=== PATIENT | female | born 1950 | race American Indian/Alaskan Native ===

== ENCOUNTER 2016-09-24 20:49 | Emergency (ER) | payer MEDICARE ==
[2016-09-24 22:06] LABS: Basophils % (Auto) 0.9 % (0.0-1.8); Eosinophils % (Auto) 2.1 % (0.0-4.3); Hematocrit 41.7 % (30.3-42.9); Hemoglobin 13.8 gm/dl (10.1-14.3); Mean Corpuscular HGB Conc 33 % (30-34); Mean Corpuscular Hemoglobin 30 pg (28-32); Mean Corpuscular Volume 90 fl (79-97); Platelet Count 234 K/mm3 (140-440); Red Blood Count 4.65 M/mm3 (3.65-5.03); Red Cell Distribution Width 13.4 % (13.2-15.2); White Blood Count 6.7 K/mm3 (4.5-11.0)
[2016-09-24 22:16] LABS: INR 1.13 (0.87-1.13)
[2016-09-24 22:17] LABS: Partial Thromboplastin Time 27.9 Sec. (24.2-36.6)
[2016-09-24 23:01] LABS: Albumin 3.8 g/dL (3.9-5); Albumin/Globulin Ratio 1.1 %; Bilirubin,Total 0.6 mg/dL (0.1-1.2); Calcium 9.5 mg/dL (8.4-10.2); Chloride 90.6 mmol/L (98-107); Potassium 3.1 mmol/L (3.6-5.0); Total Protein 7.3 g/dL (6.3-8.2)
--- NOTE | 2016-09-24 23:10 | Cat Scan Report ---
FINAL REPORT EXAM: CT HEAD/BRAIN WO CON HISTORY: Headache TECHNIQUE: CT head without contrast PRIORS: None. FINDINGS: No acute intra-axial or extra-axial hemorrhage is identified. There is no evidence of midline shift or mass effect. The ventricles and sulci are within normal limits. Ramirez-white matter differentiation is intact. No acute parenchymal abnormalities seen. Bony calvarium is grossly intact. There is complete opacity within the visualized right maxillary sinus IMPRESSION: Opacification of the right maxillary sinus consistent with sinusitis which may be acute or chronic
[2016-09-25 05:58] LABS: Bilirubin,Urine NEG (Negative); Blood,Urine NEG (Negative); Ketones,Urine NEG (Negative); Leukocyte Esterase,Urine NEG (Negative); Mucus,Urine FEW /HPF; Nitrite,Urine NEG (Negative); Protein,Urine <15 mg/dL mg/dL (Negative); Urobilinogen,Urine < 2.0 mg/dL (<2.0)
[2016-09-25] MEDS ORDERED: LEVAQUIN PO ONE (07:15)
[2016-09-25] MEDS ORDERED: K-DUR PO ONE (07:23)
--- NOTE | 2016-09-25 07:28 | Emergency Department Report ---
ED Headache HPI - General Chief Complaint: Headache Stated Complaint: HEAD/ARM PAIN Time Seen by Provider: 09/25/16 07:05 Source: patient Exam Limitations: no limitations - History of Present Illness Initial Comments: 65 year old female with a past medical history hypertension and sinusitis presents to the hospital complains of headache and drowsiness since waking up yesterday morning. Patient also complains of poorly controlled blood pressure despite being compliant with her clonidine 0.2 mg twice a day, and hydrochlorothiazide 25 mg daily. She is waiting in the ER 10+ hours patient is now pain-free without receiving any medication. BP is also currently 144/67. Patient states she has had intermittent headaches times one month and is currently taking Tylenol with codeine and ibuprofen for pain. She denies any blurred vision, chest pain, shortness breath, nausea, vomiting, or diaphoresis. Allergies/Adverse Reactions: Allergies No Known Allergies Allergy (Unverified 09/24/16 21:42) Home Medications: Ambulatory Orders Acetaminophen/Codeine [Tylenol /Codeine # 3 tab] 1 tab PO Q6H PRN 09/25/16 Amoxicillin/K Clav Tab [Augmentin 875 mg] 1 tab PO Q12HR #14 tab 09/25/16 Clonidine 0.2 mg PO BID 09/25/16 Hydrochlorothiazide 25 mg PO ONCE 09/25/16 Ibuprofen [Motrin 800 MG tab] 800 mg PO BID 09/25/16 Potassium Chloride [K-Dur] 20 meq PO QDAY #4 tablet 09/25/16 Sodium Chloride [Saline Nasal [place]] 1 - 2 sprays NS PRN PRN #1 bottle 09/25/16 amLODIPine [Norvasc] 5 mg PO DAILY #30 tab 09/25/16 ED Review of Systems ROS: Stated complaint: HEAD/ARM PAIN Other details as noted in HPI Comment: All other systems reviewed and negative Other: Constitutional: No fevers chills Eyes: No eye pain visual changes or discharge ENT: Nasal congestion Neck: Denies pain Respiratory: Denies cough wheezing shortness of breath Cardiovascular: Denies chest pain, palpitations, syncope GI: Denies abdominal pain, nausea, vomiting, diarrhea : Denies dysuria, urinary frequency, or urgency Musculoskeletal: Denies back pain, joint swelling Skin: Denies rash, lesions Neurologic: As per HPI Psychiatric: Denies suicidal ideation, hallucinations ED Past Medical Hx - Past Medical History Previous Medical History?: Yes Hx Hypertension: Yes Additional medical history: sinusitis - Surgical History Past Surgical History?: Yes Hx Appendectomy: Yes Additional Surgical History: x 2 - Social History Smoking Status: Former Smoker Substance Use Type: None - Medications Home Medications: Home Medications Medication Instructions Recorded Confirmed Last Taken Type Acetaminophen/Codeine [Tylenol 1 tab PO Q6H PRN 09/25/16 09/25/16 Unknown History /Codeine # 3 tab] Amoxicillin/K Clav Tab [Augmentin 1 tab PO Q12HR #14 tab 09/25/16 Unknown Rx 875 mg] Clonidine 0.2 mg PO BID 09/25/16 09/25/16 Unknown History Hydrochlorothiazide 25 mg PO ONCE 09/25/16 09/25/16 Unknown History Ibuprofen [Motrin 800 MG tab] 800 mg PO BID 09/25/16 09/25/16 Unknown History Potassium Chloride [K-Dur] 20 meq PO QDAY #4 tablet 09/25/16 Unknown Rx Sodium Chloride [Saline Nasal 1 - 2 sprays NS PRN PRN #1 bottle 09/25/16 Unknown Rx R[place]on] amLODIPine [Norvasc] 5 mg PO DAILY #30 tab 09/25/16 Unknown Rx ED Physical Exam - General Limitations: No Limitations - Other Other exam information: General: No limitations, patient is alert in no acute distress Head exam: Atraumatic, normocephalic Eyes exam: Normal appearance ENT: Moist mucous membrane, normal oropharynx. Mild maxillary sinus tenderness Neck exam: Normal inspection, full range of motion, no meningismus nontender Respiratory exam: Clear to auscultation bilateral, no wheezes, rales, crackles Cardiovascular: Normal rate and rhythm, normal heart sounds Abdomen: Soft, nondistended, and nontender, with normal bowel sounds, no rebound, or guarding Extremity: Full range of motion normal inspection no deformity, no calf tenderness or edema Back: Normal Inspection, full range of motion, no tenderness Neurologic: Alert, oriented x3, cranial nerves intact, no motor or sensory deficit Psychiatric: normal affect, normal mood Skin: Warm, dry, intact ED Course Vital Signs 09/24/16 09/25/16 09/25/16 21:36 03:31 03:40 Temperature 98.2 F Pulse Rate 69 69 67 Respiratory 20 13 15 Rate Blood Pressure 210/112 112/70 112/70 Blood Pressure [Right] O2 Sat by Pulse 100 100 100 Oximetry 09/25/16 09/25/16 09/25/16 03:50 04:00 04:27 Temperature 98.9 F Pulse Rate 66 71 62 Respiratory 14 11 L 12 Rate Blood Pressure 105/62 105/62 210/94 Blood Pressure [Right] O2 Sat by Pulse 100 100 Oximetry 09/25/16 09/25/16 09/25/16 04:50 05:00 05:14 Temperature 97.4 F L Pulse Rate 57 L Respiratory 14 Rate Blood Pressure 202/85 202/85 187/80 Blood Pressure 202/85 [Right] O2 Sat by Pulse 100 100 100 Oximetry 09/25/16 09/25/16 09/25/16 05:20 05:31 05:40 Temperature Pulse Rate Respiratory Rate Blood Pressure 187/80 172/74 172/74 Blood Pressure [Right] O2 Sat by Pulse 100 100 100 Oximetry 09/25/16 09/25/16 09/25/16 05:50 06:01 06:10 Temperature Pulse Rate Respiratory Rate Blood Pressure 172/74 144/67 144/67 Blood Pressure [Right] O2 Sat by Pulse 100 100 100 Oximetry 09/25/16 09/25/16 09/25/16 06:20 06:30 07:31 Temperature Pulse Rate Respiratory Rate Blood Pressure 144/67 149/63 160/76 Blood Pressure [Right] O2 Sat by Pulse 100 99 100 Oximetry - Reevaluation(s) Reevaluation #1: 09/25/16 07:24 BB currently 144/67 and patient is pain-free. ED Medical Decision Making - Lab Data Result diagrams: 09/24/16 21:50 09/24/16 21:59 Lab Results 09/24/16 09/24/16 09/24/16 Range/Units 21:50 21:59 21:59 WBC 6.7 (4.5-11.0) K/mm3 RBC 4.65 (3.65-5.03) M/mm3 Hgb 13.8 (10.1-14.3) gm/dl Hct 41.7 (30.3-42.9) % MCV 90 (79-97) fl MCH 30 (28-32) pg MCHC 33 (30-34) % RDW 13.4 (13.2-15.2) % Plt Count 234 (140-440) K/mm3 Lymph % (Auto) 33.6 (13.4-35.0) % [place] % (Auto) 12.6 H (0.0-7.3) % Eos % (Auto) 2.1 (0.0-4.3) % Baso % (Auto) 0.9 (0.0-1.8) % Lymph # 2.2 (1.2-5.4) K/mm3 [place] # 0.8 (0.0-0.8) K/mm3 Eos # 0.1 (0.0-0.4) K/mm3 Baso # 0.1 (0.0-0.1) K/mm3 Seg Neutrophils % 50.8 (40.0-70.0) % Seg Neutrophils # 3.4 (1.8-7.7) K/mm3 PT 14.4 (12.2-14.9) Sec. INR 1.13 (0.87-1.13) APTT 27.9 (24.2-36.6) Sec. Sodium 132 L (137-145) mmol/L Potassium 3.1 L (3.6-5.0) mmol/L Chloride 90.6 L (98-107) mmol/L Carbon Dioxide 29 (22-30) mmol/L Anion Gap 16 mmol/L BUN 14 (7-17) mg/dL Creatinine 1.0 (0.7-1.2) mg/dL Estimated GFR 56 ml/min BUN/Creatinine Ratio 14.00 % Glucose 106 H (65-100) mg/dL Calcium 9.5 (8.4-10.2) mg/dL Total Bilirubin 0.60 (0.1-1.2) mg/dL AST 19 (5-40) units/L ALT 16 (7-56) units/L Alkaline Phosphatase 64 (35-129) units/L Total Protein 7.3 (6.3-8.2) g/dL Albumin 3.8 L (3.9-5) g/dL Albumin/Globulin Ratio 1.1 % Urine Color (Yellow) Urine Turbidity (Clear) Urine pH (5.0-7.0) Ur Specific Payne (1.003-1.030) Urine Protein (Negative) mg/dL Urine Glucose (UA) (Negative) mg/dL Urine Ketones (Negative) mg/dL Urine Blood (Negative) Urine Nitrite (Negative) Urine Bilirubin (Negative) Urine Urobilinogen (<2.0) mg/dL Ur Leukocyte Esterase (Negative) Urine WBC (Auto) (0.0-6.0) /HPF Urine RBC (Auto) (0.0-6.0) /HPF U Epithel Cells (Auto) (0-13.0) /HPF Hyaline Casts /LPF Urine Mucus /HPF 09/25/16 Range/Units 05:22 WBC (4.5-11.0) K/mm3 RBC (3.65-5.03) M/mm3 Hgb (10.1-14.3) gm/dl Hct (30.3-42.9) % MCV (79-97) fl MCH (28-32) pg MCHC (30-34) % RDW (13.2-15.2) % Plt Count (140-440) K/mm3 Lymph % (Auto) (13.4-35.0) % [place] % (Auto) (0.0-7.3) % Eos % (Auto) (0.0-4.3) % Baso % (Auto) (0.0-1.8) % Lymph # (1.2-5.4) K/mm3 [place] # (0.0-0.8) K/mm3 Eos # (0.0-0.4) K/mm3 Baso # (0.0-0.1) K/mm3 Seg Neutrophils % (40.0-70.0) % Seg Neutrophils # (1.8-7.7) K/mm3 PT (12.2-14.9) Sec. INR (0.87-1.13) APTT (24.2-36.6) Sec. Sodium (137-145) mmol/L Potassium (3.6-5.0) mmol/L Chloride (98-107) mmol/L Carbon Dioxide (22-30) mmol/L Anion Gap mmol/L BUN (7-17) mg/dL Creatinine (0.7-1.2) mg/dL Estimated GFR ml/min BUN/Creatinine Ratio % Glucose (65-100) mg/dL Calcium (8.4-10.2) mg/dL Total Bilirubin (0.1-1.2) mg/dL AST (5-40) units/L ALT (7-56) units/L Alkaline Phosphatase (35-129) units/L Total Protein (6.3-8.2) g/dL Albumin (3.9-5) g/dL Albumin/Globulin Ratio % Urine Color Yellow (Yellow) Urine Turbidity Clear (Clear) Urine pH 6.0 (5.0-7.0) Ur Specific Payne 1.009 (1.003-1.030) Urine Protein <15 mg/dl (Negative) mg/dL Urine Glucose (UA) Neg (Negative) mg/dL Urine Ketones Neg (Negative) mg/dL Urine Blood Neg (Negative) Urine Nitrite Neg (Negative) Urine Bilirubin Neg (Negative) Urine Urobilinogen < 2.0 (<2.0) mg/dL Ur Leukocyte Esterase Neg (Negative) Urine WBC (Auto) 2.0 (0.0-6.0) /HPF Urine RBC (Auto) 2.0 (0.0-6.0) /HPF U Epithel Cells (Auto) 3.0 (0-13.0) /HPF Hyaline Casts 4 /LPF Urine Mucus Few /HPF - Radiology Data Radiology results: report reviewed (CT head: Opacification of the right maxillary sinus consistent with sinusitis which may be acute or chronic) - Medical Decision Making Patient has a mild electrolyte abnormalities including low sodium, potassium, and chloride. This is likely secondary to her diuretic/hydrochlorothiazide. I would discontinue this medication. I will replace hydrochlorothiazide with Norvasc. Patient provided a copy of her labs. Outpatient follow-up with PMD Dr. Medina will be encouraged. Patient received by mouth potassium in the ED prior to discharge. Several days of potassium prescription will also be provided. - Differential Diagnosis hypertensive urgency, cranial hemorrhage, sinusitis, Critical Care Time: No Critical care attestation.: If time is entered above; I have spent that time in minutes in the direct care of this critically ill patient, excluding procedure time. ED Disposition Clinical Impression: Uncontrolled hypertension, Headache, Right maxillary sinusitis, Hyponatremia, Hypokalemia Disposition: DISCHARGED TO HOME OR SELFCARE Is pt being admited?: No Does the pt Need Aspirin: No Condition: Stable Instructions: Sinusitis (ED), Hyponatremia (ED), Hypokalemia (ED), Hypertension (ED) Additional Instructions: Your sodium, chloride, and potassium were low here in the ER. This likely secondary to hydrochlorothiazide. Stoppe this blood pressure medication and start the Norvasc instead. If you're blood pressure remains poorly controlled on Norvasc 5 mg and your clonidine 0.2 mg, then you will need increase in Norvasc to 10 mg. Take a copy of the lab results today provided to your doctor for further evaluation to ensure your electrolytes improve. Return if symptoms worsen. Take your current current medication as needed for pain. Prescriptions: amLODIPine [Norvasc] 5 mg PO DAILY #30 tab Amoxicillin/K Clav Tab [Augmentin 875 mg] 1 tab PO Q12HR #14 tab Potassium Chloride [K-Dur] 20 meq PO QDAY #4 tablet Sodium Chloride [Saline Nasal [place]] 1 - 2 sprays NS PRN PRN #1 bottle PRN Reason: Nasal Congestion Referrals: WILLIAM MORAN MD [Primary Care Provider] - 2-3 Days JAYLENE MARSHALL MD [Staff Physician] - 3-5 Days (ENT)
[2016-09-25 08:15] VITALS: BP 185/85
== END 2016-09-25 08:15 | disposition home or self-care (01) ==
LOC: ED 20:49
DX: I10 Essential (primary) hypertension (principal); R51 Headache; J32.0 Chronic maxillary sinusitis; E87.1 Hypo-osmolality and hyponatremia; E87.6 Hypokalemia; Z87.891 Personal history of nicotine dependence
CPT/HCPCS: 36415; 70450; 80053; 81001; 85025; 85610; 85730; 93005; 93010; 99284

== ENCOUNTER 2017-11-27 10:17 | Outpatient (CLI) | payer MEDICARE ==
--- NOTE | 2017-11-27 12:51 | Mammography Report ---
BILATERAL DIGITAL SCREENING MAMMOGRAM with CAD: 11/27/17 CLINICAL: Routine screening. COMPARISON:None available. However, a prior mammogram was apparently done at [facility]. FINDINGS: The breasts are heterogeneously dense, which may obscure small masses. Bilateral asymmetries and architectural distortion require comparison with a prior mammogram or additional imaging. No suspicious calcifications. IMPRESSION: Bilateral asymmetries and architectural distortion requiring further evaluation. BI-RADS CATEGORY: 0 -- Additional Evaluation Required RECOMMENDATION: Comparison with a previous mammogram. We will attempt to obtain a prior mammogram for comparison. If we do not obtain a prior mammogram within 30 days, a revised report will be issued recommending a recall for additional imaging. Please be advised that the patient should not schedule an appointment for return until adequate time (at least 2 weeks) has passed for us to obtain the prior mammogram. ACR BI-RADS MAMMOGRAPHIC CODES: 0 = Needs additional imaging evaluation; 1 = Negative; 2 = Benign; 3 = Probably benign; 4 = Suspicious; 5 = Malignant; 6 = Known biopsy-proven malignancy COMMENT: 1. Dense breast tissue, i.e., adenosis, fibrocystic changes, etc., may obscure an underlying neoplasm. 2. Approximately 10% of cancers are not detected with mammography. 3. A negative mammography report should not delay biopsy if a clinically suspicious mass is present. COMMENT: Patient follow-up letters are generated via our [employer] application.
== END 2017-11-27 10:18 | disposition home or self-care (01) ==
LOC: MAMMO 10:17
PROVIDERS: ATTEND Family Medicine
DX: Z12.31 Encounter for screening mammogram for malignant neoplasm of breast (principal); I10 Essential (primary) hypertension
CPT/HCPCS: 77067